=== PATIENT | male | born 1955 | race Caucasian/White ===

== ENCOUNTER 2022-03-28 10:32 | Day surgery (SDC) | payer MEDICARE, OTHER ==
[2022-03-23 08:53] LABS: BASOPHILS # (AUTO) 0.1 X10'3 (0-0.2); BASOPHILS % (AUTO) 1.3 % (0-1); EOSINOPHILS # (AUTO) 0.4 X10'3 (0-0.9); EOSINOPHILS % (AUTO) 4.9 % (0-6); HEMATOCRIT 41.4 % (42.0-52.0); HEMOGLOBIN 14.4 g/dl (14.0-17.9); LYMPHOCYTES # (AUTO) 1.8 X10'3 (1.1-4.8); LYMPHOCYTES % (AUTO) 24.5 % (21-51); MEAN CORPUSCULAR HEMOGLOBIN 32.5 PG (27.0-31.0); MEAN CORPUSCULAR HGB CONC 34.7 g/dL (33.0-36.5); MEAN CORPUSCULAR VOLUME 93.7 FL (78-98); MEAN PLATELET VOLUME 8.3 FL (7.4-10.4); MONOCYTES # (AUTO) 0.8 X10'3 (0-0.9); MONOCYTES % (AUTO) 11.1 % (2-12); NEUTROPHILS # (AUTO) 4.3 X10'3 (1.8-7.7); NEUTROPHILS % (AUTO) 58.2 % (42-75); PLATELET COUNT 165 X10'3 (140-440); RED BLOOD COUNT 4.42 X10'6 (4.70-6.10); RED CELL DISTRIBUTION WIDTH 13.5 % (11.5-14.5); WHITE BLOOD COUNT 7.3 X10'3 (4.5-11.0)
[2022-03-23 09:08] LABS: ALBUMIN 4.6 G/DL (3.4-5.0); ANION GAP 10 (8-16); BLOOD UREA NITROGEN 12 MG/DL (7-18); BUN/CREATININE RATIO 14.1 (5.4-32.0); CALCIUM 9.3 MG/DL (8.5-10.1); CHLORIDE 100 MMOL/L (99-107); CREATININE 0.85 MG/DL (0.60-1.10); GLUCOSE 109 MG/DL (70-104); POTASSIUM 4.9 MMOL/L (3.5-5.1); SODIUM 135 MMOL/L (135-145); TOTAL CARBON DIOXIDE 25.4 MMOL/L (24-32); eGFR 90 ML/MIN
[2022-03-23 09:10] LABS: APTT 34 SECONDS (22-32)
[2022-03-28] VITALS (12 sets, daily range): BP systolic 106–141; BP diastolic 66–87
[~2022-03-28] VITALS: Ht 180.3 cm; Wt 81.5 kg
[~2022-03-28 10:32] MED LIST: ASPI81TA47 PO; FENOFIBRATE PO; ORPH100T2 PO; TRAM50TA2 PO
[2022-03-28] MEDS ORDERED: fentaNYL/PF 50MCG/1 ML 2ML syringe IV ONE (10:55)
[2022-03-28] MEDS ORDERED: midazolam 1 mg/ML 2ml injection IV ONE (11:05)
[2022-03-28] MEDS ORDERED: DABI150C PO (11:53)
[2022-03-28] MEDS ORDERED: LOSA50TA64 PO (11:53)
[2022-03-28] MEDS ORDERED: GABA300C PO (11:53)
[2022-03-28] MEDS ORDERED: GEMF600T89 PO (11:53)
[2022-03-28] MEDS ORDERED: MULT-1085 PO (11:53)
[2022-03-28] MEDS ORDERED: ibuprofen PO (11:53)
[2022-03-28] MEDS ORDERED: METO25TA6 PO (11:53)
[2022-03-28] MEDS ORDERED: MIDAZolam 1mg/ml 10ml vial IV ONE (12:20)
== END 2022-03-28 15:10 | disposition home or self-care (01) ==
LOC: SSTAY O 10:32
PROVIDERS: ATTEND Student in an Organized Health Care Education/Training Program
DX: I48.19 Other persistent atrial fibrillation (principal); I10 Essential (primary) hypertension; Z98.890 Other specified postprocedural states; I48.0 Paroxysmal atrial fibrillation; Z79.899 Other long term (current) drug therapy
CPT/HCPCS: 36415; 80048; 85025; 85610; 85730; 92960; 93005; J2250; J3010; J7030; A4620